=== PATIENT | male | born 1980 | race African-American/Black ===

== ENCOUNTER 2020-09-13 16:35 | Emergency (ER) | payer BC ==
[~2020-09-13] VITALS: Ht 210.8 cm; Wt 108.9 kg
[2020-09-13] MEDS ORDERED: PERCOCET 5-3251 EACH PO (17:25)
[2020-09-13 17:50] VITALS: BP 129/73
== END 2020-09-13 17:51 | disposition home or self-care (01) ==
LOC: M.ERS 16:35
DX: S82.844A Nondisplaced bimalleolar fracture of right lower leg, initial encounter for closed fracture (principal); X50.9XXA Other and unspecified overexertion or strenuous movements or postures, initial encounter; Y93.67 Activity, basketball; Y92.89 Other specified places as the place of occurrence of the external cause; Y99.8 Other external cause status

== ENCOUNTER → 2020-09-23 | Outpatient (CLI) | payer BC ==
[~2020-09-23] MED LIST: PERCOCET 5-3251 EACH PO
== END ==
LOC: M.LAB 09:38
PROVIDERS: ATTEND Orthopaedic Surgery
DX: Z01.812 Encounter for preprocedural laboratory examination (principal); Z20.828 Contact with and (suspected) exposure to other viral communicable diseases; M25.571 Pain in right ankle and joints of right foot; S93.421A Sprain of deltoid ligament of right ankle, initial encounter; S82.841A Displaced bimalleolar fracture of right lower leg, initial encounter for closed fracture; X58.XXXA Exposure to other specified factors, initial encounter; Y93.89 Activity, other specified; Y92.89 Other specified places as the place of occurrence of the external cause; Y99.8 Other external cause status